=== PATIENT | female | born 1985 | race Two or more races ===

== ENCOUNTER 2023-10-17 09:22 | Emergency (ER) | payer MEDICAID, OTHER ==
[~2023-10-17] VITALS: Ht 154.9 cm; Wt 78.8 kg
[2023-10-17 10:14] LABS: Urine Bacteria NONE SEEN /hpf (None Seen); Urine Blood Negative /uL (Negative); Urine Clarity HAZY (Clear); Urine Color Yellow (Yellow); Urine Protein, UAD TRACE (Negative); Urine Specific Gravity 1.018 (1.001-1.035); Urine Urobilinogen Normal (Negative); Urine WBC 5 /hpf (0 - 5)
[2023-10-17 11:40] VITALS: PULSE 100; RESP 16; O2SAT 100
[2023-10-17] MEDS ORDERED: methylPREDNISolone SOD SUCC 125 MG/2 ML VL IM ONE (12:00)
[2023-10-17 12:40] VITALS: BP 128/79; PULSE 80; RESP 16; TEMP 97.7; O2SAT 100
== END 2023-10-17 12:46 | disposition home or self-care (01) ==
LOC: ER 09:22
DX: M54.50 Low back pain, unspecified (principal)
CPT/HCPCS: 81001; 96372; 99283; J2930

== ENCOUNTER 2023-12-30 14:33 | Observation (INO) | payer MEDICAID | END 2023-12-30 18:31 | disposition home or self-care (01) | LOC: LDRP 14:33 → UNDOADMOB 14:33 → LDRP 14:41 → UNDODISOB 18:31 | PROVIDERS: ADMIT Obstetrics & Gynecology; ATTEND Obstetrics & Gynecology | DX: O26.893 Other specified pregnancy related conditions, third trimester (principal); G89.29 Other chronic pain; M54.50 Low back pain, unspecified; Z3A.35 35 weeks gestation of pregnancy; Z79.899 Other long term (current) drug therapy | CPT/HCPCS: 59025; 81002; 82948; G0378 ==

== ENCOUNTER 2024-01-03 12:39 | Observation (INO) | payer MEDICAID ==
[2024-01-03 13:35] LABS: Basophils # (auto) 0 10 ^3/uL (0-0.2); Basophils % (auto) 0.2 % (0.0-2.0); Eosinophils # (auto) 0 10 ^3/uL (0-0.8); Eosinophils % (auto) 0.6 % (0.0-7.0); Hematocrit 35.7 % (36.0-46.0); Hemoglobin 11.7 g/dL (12.2-16.2); Lymphocytes # (auto) 1.4 10 ^3/uL (0.4-5.4); Lymphocytes % (auto) 18.2 % (10.0-50.0); Mean Corpuscular Hemoglobin 30.6 pg (28.0-32.0); Mean Corpuscular Hgb Conc. 32.8 g/dL (32.0-36.0); Mean Corpuscular Volume 93.2 fL (80.0-100.0); Monocytes # (auto) 0.5 10 ^3/uL (0-1.3); Monocytes % (auto) 6.1 % (0.0-12.0); Neutrophils # (auto) 5.8 10 ^3/uL (1.6-8.6); Neutrophils % (auto) 74.9 % (37.0-80.0); Nucleated Red Blood Cells % 0.1 %; Red Blood Cells 3.83 10^6/uL (4.0-5.20); Red Cell Distribution Width 13.4 % (11.8-14.3); White Blood Cell 7.8 10^3/uL (4.4-10.8)
[2024-01-03 13:51] LABS: INR 0.93 (0.9-1.15); Partial Thromboplastin Time 27.9 SEC (24.5-34.5); Prothrombin Time 9.8 sec (9.3-11.8)
[2024-01-03 13:56] LABS: Alanine Aminotransferase 17 U/L (7-40); Albumin 3.5 g/dL (3.2-4.8); Alkaline Phosphatase 96 U/L (46-116); Anion Gap 7 (5-15); Aspartate Aminotransferase 14 U/L (13-40); BUN/Creatinine Ratio 9.8 (10.0-20.0); Blood Urea Nitrogen 6 mg/dL (9-23); Calcium 8.8 mg/dL (8.7-10.4); Carbon Dioxide 22 mmol/L (20-30); Chloride 109 mmol/L (98-107); Glucose 96 mg/dL (74-106); Potassium 3.7 mmol/L (3.5-5.1); Sodium 138 mmol/L (136-145); Uric Acid 5.1 mg/dL (3.1-7.8)
[2024-01-03 13:57] LABS: Bilirubin, Total 0.4 mg/dL (0.2-1.0); Total Protein 6.5 g/dL (5.7-8.2)
[2024-01-03 14:18] LABS: Urine Bacteria FEW /hpf (None Seen); Urine Blood Negative /uL (Negative); Urine Clarity Clear (Clear); Urine Color Yellow (Yellow); Urine Mucus FEW (None Seen); Urine Protein, UAD TRACE (Negative); Urine Specific Gravity 1.025 (1.001-1.035); Urine Urobilinogen Normal (Negative); Urine WBC 3 /hpf (0 - 5); Urine pH 6.5 (5.0-8.0)
[2024-01-03 14:19] LABS: Protein, Urine 36.6 mg/dL (0.0-11.9)
[2024-01-03 14:21] LABS: Creatinine, Urine 163.91 mg/dL (30.0-125.0); Urine Protein/Creatinine Ratio 0.22
== END 2024-01-03 14:48 | disposition home or self-care (01) ==
LOC: LDRP 12:39 → UNDOADMOB 12:39 → LDRP 12:51
PROVIDERS: ADMIT Obstetrics & Gynecology; ATTEND Obstetrics & Gynecology
DX: O09.513 Supervision of elderly primigravida, third trimester (principal); Z3A.35 35 weeks gestation of pregnancy
CPT/HCPCS: 36415; 59025; 80053; 81001; 81002; 82570; 84156; 84550; 85025; 85610; 85730; 94760; G0378

== ENCOUNTER 2024-01-14 16:17 | Observation (INO) | payer MEDICAID ==
[2024-01-14 18:08] LABS: Basophils # (auto) 0 10 ^3/uL (0-0.2); Basophils % (auto) 0.3 % (0.0-2.0); Eosinophils # (auto) 0.1 10 ^3/uL (0-0.8); Eosinophils % (auto) 1.2 % (0.0-7.0); Hematocrit 34.8 % (36.0-46.0); Hemoglobin 11.8 g/dL (12.2-16.2); Lymphocytes # (auto) 2.1 10 ^3/uL (0.4-5.4); Lymphocytes % (auto) 24.9 % (10.0-50.0); Mean Corpuscular Hemoglobin 31.7 pg (28.0-32.0); Mean Corpuscular Hgb Conc. 33.9 g/dL (32.0-36.0); Mean Corpuscular Volume 93.4 fL (80.0-100.0); Monocytes # (auto) 0.7 10 ^3/uL (0-1.3); Monocytes % (auto) 7.9 % (0.0-12.0); Neutrophils # (auto) 5.4 10 ^3/uL (1.6-8.6); Neutrophils % (auto) 65.7 % (37.0-80.0); Nucleated Red Blood Cells % 0.1 %; Red Blood Cells 3.73 10^6/uL (4.0-5.20); White Blood Cell 8.2 10^3/uL (4.4-10.8)
[2024-01-14 18:23] LABS: INR 0.93 (0.9-1.15); Partial Thromboplastin Time 27.7 SEC (24.5-34.5); Prothrombin Time 9.8 sec (9.3-11.8)
[2024-01-14 18:30] LABS: Alanine Aminotransferase 16 U/L (7-40); Albumin 3.6 g/dL (3.2-4.8); Alkaline Phosphatase 108 U/L (46-116); Anion Gap 8 (5-15); Aspartate Aminotransferase 13 U/L (13-40); Bilirubin, Total 0.3 mg/dL (0.2-1.0); Blood Urea Nitrogen 11 mg/dL (9-23); Calcium 9.3 mg/dL (8.7-10.4); Carbon Dioxide 20 mmol/L (20-30); Chloride 109 mmol/L (98-107); Glucose 75 mg/dL (74-106); Potassium 4.6 mmol/L (3.5-5.1); Sodium 137 mmol/L (136-145); Total Protein 6.4 g/dL (5.7-8.2); Uric Acid 4.6 mg/dL (3.1-7.8)
== END 2024-01-14 20:17 | disposition home or self-care (01) ==
LOC: LDRP 16:17
PROVIDERS: ADMIT Obstetrics & Gynecology; ATTEND Obstetrics & Gynecology
DX: O26.893 Other specified pregnancy related conditions, third trimester (principal); R51.9 Headache, unspecified; M25.472 Effusion, left ankle; Z3A.37 37 weeks gestation of pregnancy; Z86.2 Personal history of diseases of the blood and blood-forming organs and certain disorders involving the immune mechanism
CPT/HCPCS: 36415; 59025; 76818; 80053; 81002; 84550; 85025; 85610; 85730; 94760; G0378

== ENCOUNTER 2024-01-16 09:25 | Observation (INO) | payer MEDICAID ==
[2024-01-16] MEDS ORDERED: PREN-96 PO (09:46)
[2024-01-16 10:45] LABS: Urine Bacteria FEW /hpf (None Seen); Urine Blood Negative /uL (Negative); Urine Clarity HAZY (Clear); Urine Color Yellow (Yellow); Urine Protein, UAD Negative (Negative); Urine Specific Gravity 1.015 (1.001-1.035); Urine Urobilinogen Normal (Negative); Urine WBC 3 /hpf (0 - 5)
[2024-01-16 10:51] LABS: Protein, Urine 21.2 mg/dL (0.0-11.9)
[2024-01-16 10:54] LABS: Creatinine, Urine 89.73 mg/dL (30.0-125.0); Urine Protein/Creatinine Ratio 0.24
[2024-01-16 11:19] LABS: Protein, Urine < 6.0 mg/dL (0.0-11.9)
[2024-01-16 12:07] LABS: 24 Hr. Total Protein, Urine 146.99975 mg/24 Hr (<149.1); Urine Total Volume, 24 Hours 2450 mL
== END 2024-01-16 11:36 | disposition home or self-care (01) ==
LOC: LDRP 09:25
PROVIDERS: ADMIT Obstetrics & Gynecology; ATTEND Obstetrics & Gynecology
DX: O13.3 Gestational [pregnancy-induced] hypertension without significant proteinuria, third trimester (principal); O48.0 Post-term pregnancy; Z3A.38 38 weeks gestation of pregnancy
CPT/HCPCS: 81001; 82570; 84156; 94760; G0378; 59409

== ENCOUNTER 2024-01-21 04:22 | Inpatient (IN) | payer MEDICAID ==
[~2024-01-21] VITALS: Ht 154.9 cm; Wt 81.6 kg
[2024-01-21 01:00] VITALS: BP 122/72; PULSE 91; RESP 18; TEMP 98.8
[~2024-01-21 04:22] MED LIST: PREN-96 PO
[2024-01-21] MEDS ORDERED: WITCH HAZEL-GLYCERIN PAD TOP PRN (05:00)
[2024-01-21] MEDS ORDERED: DERMOPLAST 60ML BOTTLE TOP PRN (05:00)
[2024-01-21] MEDS ORDERED: LIDOCAINE 2%HCL (LOCAL ANESTH.) INJ 20ML MDV IJ PRN (05:00)
[2024-01-21] MEDS ORDERED: BUTORPHANOL TARTRATE 2 MG/1 ML VIAL IV PRN (05:00)
[2024-01-21] MEDS ORDERED: PHISODERM TOP SOLN 240ML BTL TOP PRN (05:00)
[2024-01-21] MEDS ORDERED: PENICILLIN G POT 5MIL/D5 50ML 50 ML IV ONE (05:00)
[2024-01-21 05:11] LABS: Fern Testing Positive
[2024-01-21 05:29] LABS: Basophils # (auto) 0 10 ^3/uL (0-0.2); Basophils % (auto) 0.5 % (0.0-2.0); Eosinophils # (auto) 0.1 10 ^3/uL (0-0.8); Eosinophils % (auto) 1.8 % (0.0-7.0); Hematocrit 35.7 % (36.0-46.0); Lymphocytes # (auto) 2.2 10 ^3/uL (0.4-5.4); Lymphocytes % (auto) 31.2 % (10.0-50.0); Mean Corpuscular Hemoglobin 31.5 pg (28.0-32.0); Mean Corpuscular Hgb Conc. 33.5 g/dL (32.0-36.0); Mean Corpuscular Volume 93.9 fL (80.0-100.0); Monocytes # (auto) 0.6 10 ^3/uL (0-1.3); Monocytes % (auto) 7.9 % (0.0-12.0); Neutrophils # (auto) 4.1 10 ^3/uL (1.6-8.6); Neutrophils % (auto) 58.6 % (37.0-80.0); Nucleated Red Blood Cells % 0.2 %; Red Blood Cells 3.81 10^6/uL (4.0-5.20); Red Cell Distribution Width 13.5 % (11.8-14.3)
[2024-01-21] MEDS ORDERED: TERBUTALINE SULFATE 1 MG/ML 1ML VIAL SC PRN (05:45)
[2024-01-21 05:49] LABS: Alanine Aminotransferase 13 U/L (7-40); Albumin 3.5 g/dL (3.2-4.8); Alkaline Phosphatase 121 U/L (46-116); Anion Gap 6 (5-15); Aspartate Aminotransferase 12 U/L (13-40); BUN/Creatinine Ratio 11.7 (10.0-20.0); Bilirubin, Total 0.4 mg/dL (0.2-1.0); Blood Urea Nitrogen 7 mg/dL (9-23); Calcium 8.7 mg/dL (8.7-10.4); Carbon Dioxide 19 mmol/L (20-30); Chloride 112 mmol/L (98-107); Glucose 93 mg/dL (74-106); Sodium 137 mmol/L (136-145); Total Protein 6.6 g/dL (5.7-8.2); Uric Acid 5.2 mg/dL (3.1-7.8)
[2024-01-21 05:50] LABS: Urine Bacteria FEW /hpf (None Seen); Urine Blood Negative /uL (Negative); Urine Clarity Clear (Clear); Urine Protein, UAD Negative (Negative); Urine Specific Gravity 1.006 (1.001-1.035); Urine Urobilinogen Normal (Negative); Urine WBC 1 /hpf (0 - 5); Urine pH 6.5 (5.0-8.0)
[2024-01-21 05:52] LABS: INR 0.93 (0.9-1.15); Partial Thromboplastin Time 29.1 SEC (24.5-34.5); Prothrombin Time 9.8 sec (9.3-11.8)
[2024-01-21] MEDS: LACTATED RINGER'S 1,000 ML IV SCH (05:57)
[2024-01-21 06:06] LABS: Protein, Urine 7.1 mg/dL (0.0-11.9)
[2024-01-21 06:08] LABS: Amphetamine Screen, Urine Neg (NEGATIVE); Barbiturate Scree,Urine Neg (NEGATIVE); Benzodiazephine Screen, Urine Neg (NEGATIVE); Cocaine Screen, Urine Neg (NEGATIVE)
[2024-01-21 06:09] LABS: Cannabinoid Screen, Urine Neg (NEGATIVE); Creatinine, Urine 21.64 mg/dL (30.0-125.0); Opiate Scree,Urine Neg (NEGATIVE); Phencyclidine Screen, Urine Neg (NEGATIVE); Urine Protein/Creatinine Ratio 0.33
[2024-01-21 06:19] LABS: Urine Color Straw (Yellow)
[2024-01-21] MEDS: LACT. RINGERS/OXYTOCIN 20UNITS 1,000 ML IV SCH (07:12)
[2024-01-21] MEDS ORDERED: PENICILLIN G POTASSIUM 2,500,000 UNITS in D5W 5% 50 ML IV SCH (09:00)
[2024-01-21] MEDS ORDERED: ONDANSETRON HCL 4 MG/2 ML VIAL IV PRN (10:15)
[2024-01-21] MEDS: BUTORPHANOL TARTRATE 2 MG/1 ML VIAL IV PRN (10:44)
[2024-01-21] MEDS: LIDOCAINE HCL 2 %PF INJ 10ML AMP IJ ONE (12:30)
[2024-01-21] MEDS ORDERED: LACTATED RINGER'S 1,000 ML IV ONE (12:30)
[2024-01-21] MEDS ORDERED: ePHEDrine SULFATE 50 MG/ML AMP IV ONE (12:30)
[2024-01-21] MEDS ORDERED: NALOXONE HCL 0.4 MG/ML VIAL IV ONE (12:30)
[2024-01-21] MEDS: ROPIVACAINE HCL 0 ML ONE (12:40)
[2024-01-21] MEDS: miSOPROStol 100 mcg TAB ONE (16:49)
[2024-01-21] MEDS: CARBOPROST TROMETHAMINE 250 MCG/1ML VIAL IM ONE (16:50)
[2024-01-21] MEDS: DIPHENOXYLATE W/ATROPINE 2.5 MG TAB ONE (16:51)
[2024-01-21 18:00] VITALS: BP 129/70; PULSE 86; RESP 18
[2024-01-21] MEDS: LACT. RINGERS/OXYTOCIN 20UNITS 500 ML IV ONE ×3 (18:42→21:40)
[2024-01-21] MEDS: MAGNESIUM SULFATE 40MG/ML 1,000 ML IV ONE (18:43)
[2024-01-21] MEDS: MAGNESIUM SULFATE 100 ML IV ONE ×2 (18:43→19:00)
[2024-01-21 19:00] VITALS: BP 112/59; PULSE 80; RESP 16; TEMP 97.5; O2SAT 98
[2024-01-21] MEDS ORDERED: LORazepam 2MG/ML-1ML VIAL IV ONE (19:00)
[2024-01-21] MEDS: MAGNESIUM SULFATE 40MG/ML 1,000 ML IV SCH (19:00)
[2024-01-21] MEDS ORDERED: ONDANSETRON ODT 4 MG TAB PO PRN (19:30)
[2024-01-21 21:00] VITALS: BP 120/78; PULSE 101; RESP 18
[2024-01-21 22:00] VITALS: BP 132/80; PULSE 100; RESP 16; TEMP 97.5; O2SAT 98
[2024-01-21] MEDS: DOCUSATE SOD 100 MG CAP PO SCH (22:00)
[2024-01-21 23:00] VITALS: BP 122/74; PULSE 87; RESP 16; TEMP 97.3; O2SAT 98
[2024-01-22] VITALS (14 sets, daily range): BP systolic 118–132; BP diastolic 63–86; PULSE 81–99; RESP 16–18; TEMP 97.4–98.8; O2SAT 96–98
[2024-01-22] MEDS: ACETAMINOPHEN 325 MG TAB PO PRN (05:51)
[2024-01-22] MEDS: IBUPROFEN 600 MG TAB PO PRN (22:06)
[2024-01-23 03:00] VITALS: BP 123/75; PULSE 63; RESP 16; TEMP 98.2; O2SAT 97
[2024-01-23 07:00] VITALS: BP 120/77; PULSE 72; RESP 16; TEMP 98.4; O2SAT 96
[2024-01-23] MEDS ORDERED: IBU600T PO (07:32)
[2024-01-23 11:00] VITALS: BP 130/74; PULSE 78; RESP 16; TEMP 98.2; O2SAT 98
[2024-01-24 06:06] LABS: RPR Non Reactive (Non Reactive)
[2024-01-24 18:06] LABS: Treponema pallidum Ab (FTA-Ab) Non Reactive (Non Reactive)
== END 2024-01-23 09:22 | disposition home or self-care (01) | DRG 560 ==
LOC: LDRP 04:22 → OBSVTOIN 04:44 → LDRP 05:23
PROVIDERS: ADMIT Obstetrics & Gynecology; ATTEND Obstetrics & Gynecology
PROC: 10E0XZZ Delivery of Products of Conception, External Approach (ICD-10-PCS; principal; 2024-01-21)
PROC: 0KQM0ZZ Repair Perineum Muscle, Open Approach (ICD-10-PCS; 2024-01-21)
DX: O14.04 Mild to moderate pre-eclampsia, complicating childbirth (principal); Z37.0 Single live birth; G89.29 Other chronic pain; O69.81X0 Labor and delivery complicated by cord around neck, without compression, not applicable or unspecified; O42.92 Full-term premature rupture of membranes, unspecified as to length of time between rupture and onset of labor; O70.1 Second degree perineal laceration during delivery; M51.16 Intervertebral disc disorders with radiculopathy, lumbar region; O99.892 Other specified diseases and conditions complicating childbirth; Z3A.38 38 weeks gestation of pregnancy
CPT/HCPCS: 36415; 59025; 59409; 80053; 80307; 81001; 82570; 83735; 84112; 84156; 84550; 85025; 85610; 85730; 86592; 86850; 86900; 86901; 93971; 94760; 94762; 96360; 96361; 96365; 96366; 96374; 96375; G0378; J2590; J7060

== ENCOUNTER 2024-03-02 22:43 | Emergency (ER) | payer MEDICAID ==
[~2024-03-02] VITALS: Ht 154.9 cm; Wt 72.9 kg
[~2024-03-02 22:43] MED LIST changes: +IBU600T PO
[2024-03-03 01:03] VITALS: BP 144/86; PULSE 96; RESP 17; TEMP 98.2; O2SAT 96
[2024-03-04] MEDS ORDERED: HYDR50TA69 PO (11:55)
[2024-03-04] MEDS ORDERED: PRED20TA2 PO (11:55)
[2024-03-04] MEDS ORDERED: FAMO20TA10 PO (11:55)
== END 2024-03-03 01:26 | disposition home or self-care (01) ==
LOC: ER 22:43
DX: L50.9 Urticaria, unspecified (principal)

== ENCOUNTER 2024-03-04 08:46 | Emergency (ER) | payer MEDICAID ==
[~2024-03-04] VITALS: Ht 154.9 cm; Wt 71.5 kg
[2024-03-04] MEDS ORDERED: FAMO20TA10 PO (11:55)
[2024-03-04] MEDS ORDERED: PRED20TA2 PO (11:55)
[2024-03-04] MEDS ORDERED: HYDR50TA69 PO (11:55)
[2024-03-04 12:01] VITALS: BP 128/81; PULSE 79; RESP 15; TEMP 98; O2SAT 96
[2024-03-04] MEDS: DexAMETHasone SOD PHOS 10MG/1ML VIAL INJ IM ONE (12:06)
== END 2024-03-04 12:23 | disposition home or self-care (01) ==
LOC: ER 08:46
DX: L50.9 Urticaria, unspecified (principal)
CPT/HCPCS: 96372; 99283; J1100

== ENCOUNTER → 2025-04-30 | Outpatient (CLI) | payer MEDICAID ==
[~2025-04-30] MED LIST changes: +FAMO20TA10 PO; +HYDR50TA69 PO; +PRED20TA2 PO
[2025-04-30 09:56] LABS: Basophils # (auto) 0 10 ^3/uL (0-0.2); Basophils % (auto) 0.7 % (0.0-2.0); Eosinophils # (auto) 0.1 10 ^3/uL (0-0.8); Eosinophils % (auto) 1.7 % (0.0-7.0); Hematocrit 41.2 % (36.0-46.0); Hemoglobin 14.3 g/dL (12.2-16.2); Lymphocytes # (auto) 1.6 10 ^3/uL (0.4-5.4); Lymphocytes % (auto) 26.7 % (10.0-50.0); Mean Corpuscular Hemoglobin 31.3 pg (28.0-32.0); Mean Corpuscular Hgb Conc. 34.7 g/dL (32.0-36.0); Mean Corpuscular Volume 90.3 fL (80.0-100.0); Monocytes # (auto) 0.3 10 ^3/uL (0-1.3); Monocytes % (auto) 5.7 % (0.0-12.0); Neutrophils # (auto) 3.8 10 ^3/uL (1.6-8.6); Neutrophils % (auto) 65.2 % (37.0-80.0); Platelet Count (auto) 222 10^3/uL (140-450); Red Blood Cells 4.56 10^6/uL (4.0-5.20); Red Cell Distribution Width 14.1 % (11.8-14.3); White Blood Cell 5.8 10^3/uL (4.4-10.8)
[2025-04-30 10:14] LABS: Urine Bacteria FEW /hpf (None Seen); Urine Blood Negative /uL (Negative); Urine Budding Yeast OCCASIONAL /hpf (None Seen); Urine Clarity Clear (Clear); Urine Color Colorless (Yellow); Urine Protein, UAD Negative (Negative); Urine Specific Gravity 1.009 (1.001-1.035); Urine Squamous Epithelial Cell FEW /hpf (<5); Urine Urobilinogen Normal (Negative); Urine WBC < 1 /HPF (0-5); Urine pH 5.5 (5.0-9.0)
[2025-04-30 10:27] LABS: Alanine Aminotransferase 15 U/L (7-40); Albumin 4.5 g/dL (3.2-4.8); Anion Gap 9 (5-15); Aspartate Aminotransferase 11 U/L (<34); BUN/Creatinine Ratio 14.5 (10.0-20.0); Calcium 9.5 mg/dL (8.7-10.4); Carbon Dioxide 25 mmol/L (20-31); Glucose 88 mg/dL (74-106); HDL Cholesterol 44 mg/dL (40-59); Potassium 4.4 mmol/L (3.5-5.1); Sodium 142 mmol/L (136-145); Total Protein 7.6 g/dL (5.7-8.2)
[2025-04-30 10:28] LABS: Bilirubin, Total 0.4 mg/dL (0.2-1.0)
[2025-04-30 10:29] LABS: Alkaline Phosphatase 44 U/L (46-116); Blood Urea Nitrogen 9 mg/dL (9-23); Chloride 108 mmol/L (98-107); Cholesterol 203 mg/dL (< 200); LDL Cholesterol 153 mg/dL (< 100); Triglycerides 156 mg/dL (< 150)
== END | disposition home or self-care (01) ==
LOC: LAB 09:35
PROVIDERS: ATTEND Internal Medicine
DX: E78.00 Pure hypercholesterolemia, unspecified (principal); E66.9 Obesity, unspecified; Z13.1 Encounter for screening for diabetes mellitus; Z00.01 Encounter for general adult medical examination with abnormal findings
CPT/HCPCS: 36415; 80053; 80061; 81001; 83036; 84439; 84443; 85025

== ENCOUNTER → 2025-07-12 | Outpatient (CLI) | payer MEDICAID ==
[2025-07-12 10:06] LABS: Urine Protein, UAD Negative (Negative)
[2025-07-12 10:12] LABS: Chloride 107 mmol/L (98-107); Potassium 4.2 mmol/L (3.5-5.1); Sodium 138 mmol/L (136-145)
[2025-07-12 10:13] LABS: Anion Gap 7 (5-15); Calcium 9.0 mg/dL (8.7-10.4); Carbon Dioxide 24 mmol/L (20-31)
[2025-07-12 10:18] LABS: BUN/Creatinine Ratio 12.7 (10.0-20.0); Blood Urea Nitrogen 9 mg/dL (9-23); Glucose 76 mg/dL (74-106); Triglycerides 124 mg/dL (< 150)
[2025-07-12 10:20] LABS: Cholesterol 198 mg/dL (< 200); HDL Cholesterol 47 mg/dL (40-59)
== END | disposition home or self-care (01) ==
LOC: LAB 09:26
PROVIDERS: ATTEND Internal Medicine
DX: E78.2 Mixed hyperlipidemia (principal); R82.90 Unspecified abnormal findings in urine
CPT/HCPCS: 36415; 80048; 80061; 81001